=== PATIENT | male | born 1955 | race Caucasian/White ===

== ENCOUNTER 2023-02-16 10:00 | Outpatient (OUT) | payer MEDICARE, OTHER, SELFPAY ==
[2023-02-16 10:30] LABS: Basophils Absolute Auto 0.1 10^3/uL (0.0-0.1); Basophils Percent Auto 0.9 % (0.2-2.0); Eosinophils Absolute Auto 0.1 10^3/uL (0.0-0.7); Eosinophils Percent Auto 1.4 % (0.9-7.0); Hematocrit 42.6 % (42.0-54.0); Hemoglobin 13.9 g/dL (14.0-18.0); Immature Granulocytes Abs Auto 0.01 10^3/uL (0.00-0.03); Immature Granulocytes Pct Auto 0.2 % (0.0-0.5); Lymphocytes Absolute Auto 1.6 10^3/uL (1.2-3.8); Lymphocytes Percent Auto 24.9 % (20.5-60.0); Mean Corpuscular HGB Conc 32.6 g/dL (29.9-35.2); Mean Platelet Volume 9.3 fL (9.5-13.5); Monocytes Absolute Auto 0.6 10^3/uL (0.3-0.8); Monocytes Percent Auto 9.4 % (1.7-12.0); Neutrophils Absolute Auto 4.1 10^3/uL (1.4-6.5); Neutrophils Percent Auto 63.2 % (43.0-75.0); Platelet Count 177 10^3/uL (150-450); Red Blood Count 4.63 10^6/uL (4.70-6.10); Red Cell Distribution Width 12.6 % (11.0-15.0); White Blood Count 6.5 10^3/uL (4.0-11.0)
[2023-02-16 10:57] LABS: Estimated Average Glucose 134 mg/dL; Glycohemoglobin A1C 6.3 % (4.5-6.2)
[2023-02-16 11:02] LABS: Alanine Aminotransferase 43 U/L (16-63); Albumin Level 3.8 g/dL (3.4-5.0); Alkaline Phosphatase 64 U/L (46-116); Anion Gap 9.2; Aspartate Amino Transferase 31 U/L (15-37); BUN Creatinine Ratio 19.5; Bilirubin Direct 0.1 mg/dL (0.0-0.2); Bilirubin Total 0.7 mg/dL (0.2-1.0); Calcium 9.5 mg/dL (8.5-10.1); Carbon Dioxide 31.4 mmol/L (21.0-32.0); Chloride 104 mmol/L (98-107); Chol HDL Ratio 3.5; Cholesterol 193 mg/dL (<=200); Estimated GFR (African America >60 (>=60); Estimated GFR (Non-African Ame >60 (>=60); Globulin 3.9 g/dL; Glucose 111 mg/dL (74-106); HDL Cholesterol 55 mg/dL (40-60); Potassium 3.6 mmol/L (3.5-5.1); Sodium 141 mmol/L (136-145); Total Protein 7.7 g/dL (6.4-8.2); Triglycerides 294 mg/dL (<=150); VLDL CHOLESTEROL 58.8 mg/dL
[2023-02-16 11:13] LABS: Prostate Specific Antigen Scrn 0.77 ng/mL (<=4.00)
== END 2023-02-16 10:01 | disposition home or self-care (01) ==
PROVIDERS: PCP Family Medicine; Visit Provider Family Medicine
DX: Z79.899 Other long term (current) drug therapy (principal); E55.9 Vitamin D deficiency, unspecified; R73.03 Prediabetes; E78.5 Hyperlipidemia, unspecified; Z12.5 Encounter for screening for malignant neoplasm of prostate
CPT/HCPCS: 36415; 80048; 80061; 80076; 82306; 83036; 85025; G0103

== ENCOUNTER 2025-03-29 12:09 | Outpatient (OUT) | payer MEDICARE, OTHER, SELFPAY ==
--- OUTSIDE RECORDS SUMMARY | 2025-03-29 12:15 | XMS_ITS | Clinical Summary ---
Author Organization [employer] [facility] tem Address [id number] [place] [address] Care Team Providers Care Inspection Clerk Name Role Phone Unavailable Primary Care Provider Unavailabl e Social History Tobacco UseTypesPacks/DayYears UsedDateSmoking Tobacco: Never AssessedChildcare AnswerDate QplbvbwgZjgaidhgvEufzjmx96/12/2019EmploymentAnswerDate Recorded GstzxbkwogLzsknei19/12/2019Sex and Gender InformationValueDate RecordedSex Assigned at BirthNot on fileLegal MvjZuow1911/04/2014 11:35 AM EDTGender Identity Not on fileSexual OrientationNot on file Plan of Treatment Not on file Medical Devices Not on file
--- OUTSIDE RECORDS SUMMARY | 2025-03-29 12:15 | XMS_ITS | Clinical Summary ---
Author Organization [facility] Address [address] [place] [address] Care Team Providers Care Hod Carrier Name Role Phone Vimal Berg MD Primary Care Provider [phone] Vimal Berg MD Unavailable Allergies No known active allergies Medications MedicationSigDispense QuantityRefillsLast FilledStart DateEnd DateStatus simvastatin (Zocor) 80 MG tablet Indications:DyslipidemiaTake 1 tablet (80 mg) by mouth at bedtime 90 tablet 5Active cholecalciferol (Vitamin D-3) 50 MCG (1999) capsule Indications:Vitamin D deficiencyTake 1 capsule (50 mcg) by mouth Daily 90 capsule 5Active allopurinol (Zyloprim) 300 MG tablet Indications:Gouty arthritisTake 1 tablet (300 mg) by mouth Daily 30 tablet 505Active Active Problems ProblemNoted DateDiagnosed DateH/O total jlhteglqb26/18/2024Exercise-induced nbanga5603/18/20249708Cmoprvkipeo35/18/2024Medicare annual wellness visit, subsequent 03/18/2024 Assessment & Plan (03/18/2024 11:07 AM EST): Due for labs. Discussed proper diet and regular aerobic exercise. Need aerobic exercise 5-6 days a week for 30 minutes at a time. Smaller portions and limit total calories. Prior colectomy and colonoscopy not indicated. Tetanus every 10 years. Advised not to smoke. Chronic ulcerative colitis without yocudsoniasd58/18/2024Gouty arthritis 03/18/2024 Assessment & Plan (10/14/2024 9:49 AM EDT): Recent flare and treat with prednisone. Start allopurinol. Handout with info on low purine diet. Patient should limit oatmeal. Encounter for long-term (current) use of olmkmkpxrwh80/18/2024Screening PSA (prostate specific antigen)03/18/20243539Jmxoppkzhfsf02/13/2024 Encounters DateTypeDepartmentCare GgogIcmiopzgsyu98/16/2025 9:35 AM EDTOffice Visit [facility] [address] [place] [phone] Nancy Nguyen MD Seborrheic keratosis (Primary Dx); Lentigines; Sebaceous hyperplasia of face; Melanocytic nevus of upper extremity, unspecified laterality; History of basal cell carcinoma; Open comedone; Actinic mzwhuutqy77/16/2025amboo flowsheet [facility] [address] [place] [phone] Nancy Nguyen MD 01/14/2025Travelfrom Last 3 Months Family History Medical HistoryRelationNameCommentsMelanomaNeg Hx Social History Tobacco UseTypesPacks/DayYears UsedDateSmoking Tobacco: NeverSmokeless Tobacco: NeverPHQ-2AnswerDate RecordedPatient Health Questionnaire-2 Jtfef07305/19/2023Sex and Gender InformationValueDate RecordedSex Assigned at BirthNot on fileLegal ZrpHxzu2206/13/2022 7:26 PM EDTGender IdentityNot on fileSexual OrientationNot on file Last Filed Vital Signs Vital SignReadingTime TakenCommentsBlood Jthhbhtm356/6407 9:23 AM EDT Exyri3673 9:23 AM LCWLrpimhwycbz88.7 ??C (98 ??F)10/14/2024 9:23 AM EDT Respiratory Wldb998110/14/2024 9:23 AM EDTOxygen Ftmgfrznfl45%10/14/2024 9:23 AM EDTInhaled Oxygen Concentration--Lavxyb49.1 kg (159 lb)10/14/2024 9:23 AM EDT Hgswlr003.3 cm (5' 9 )10/14/2024 9:23 AM EDTBody Mass Index23.48010/14/2024 9:23 AM EDT Plan of Treatment DateTypeDepartmentCare Team (Latest Contact Info)Htcnaimbzts43/20/2026 9:45 AM EDTOffice Visit [facility] [address] [place] [phone] Nancy Nguyen MD [address] [place] [address] Health MaintenanceDue DateLast DoneCommentsMedicare Annual Wellness (AWV) 1954Pneumococcal Vaccine: 65+ Years (2 of 2 - PCV) Influenza ViaowsgHkwcpxcrc33/30/2025, 12/24/2023, 01/23/2023, Additional history exists Procedures Procedure NamePriorityDate/TimeAssociated DiagnosisCommentsCRYOTHERAPY SKIN WOQBZYQylyucn54/16/2025 9:52 AM EDT Actinic keratosis from Last 3 Months Results * Cryotherapy, skin lesion (01/14/2025 9:52 AM EDT) Narrative Authorizing ProviderResult TypeResult StatusEmcarlos Nguyen MDDERM PROCEDURE ORDERABLESFinal Result from Last 3 Months Insurance Care Teams Team MemberRelationshipSpecialtyStart DateEnd Vimal Berg MD [address] [place] [phone] PCP - [facility]03/18/24 Vimal Berg MD [address] [place] [address] PCP - [facility]05/08/24
--- OUTSIDE RECORDS SUMMARY | 2025-03-29 12:18 | XMS_ITS | CCD ---
Author Organization [facility] Care Team Providers Care Ict Support Technicians Name Role Phone DR VIMAL DANIELSON Attending Unavailable ERUM, DR VIMAL Luo Consulting Unavailable ERUM, DR VIMAL Luo Primary Care Unavailable ERUM, DR VIMAL Luo Admitting Unavailable Mackenzie He Unavailable Vimal Danielson MD Primary Care Provider Vimal Danielson MD Primary Care Provider Vimal Danielson MD Unavailable Vimal Danielson MD Primary Care Provider Vimal Danielson MD Unavailable VIMAL DANIELSON Attending Unavailable NANCY LLANES Attending Unavailable VIMAL DANIELSON Attending Unavailable Medications Current Medications MedicationDrug Class(es)DatesSig (Normalized)Sig (Original)allopurinol 300 mg oral tablet (4 sources)Xanthine Oxidase InhibitorStart: 25-49-0351hevu 1 tablet by mouth once dailyallopurinol (Zyloprim) 300 MG tablet Indications: Gouty arthritis Take 1 tablet (300 mg) by mouth Daily 30 tablet 5 10/14/2024 Activecholecalciferol 0.05 mg oral capsule (11 sources)Vitamin DStart: 37-15-8139fhtu 1 capsule by mouth once daily cholecalciferol (Vitamin D-3) 50 MCG (1999) capsule Indications: Vitamin D deficiency Take 1 capsule (50 mcg) by mouth Daily 90 capsule 3 07/27/2024 Active Start: 89-36-5051ialz 1 capsule by mouth once dailycholecalciferol (Vitamin D-3) 50 MCG (1999) capsule Indications: Vitamin D deficiency Take 1 capsule (50 mcg) by mouth Daily 90 capsule 3 07/25/2023 ActivepredniSONE 50 mg oral tablet (2 sources)Start: 10-14-2024 End: 50-78-5943jtab 1 tablet by mouth once dailypredniSONE (Deltasone) 50 MG tablet Indications: Gouty arthritis Take 1 tablet (50 mg) by mouth Daily for 6 days 6 tablet 10/14/2024 10/20/2024 Activesimvastatin 80 mg oral tablet (12 sources)HMG-CoA Reductase InhibitorStart: 16-86-6414whkx 1 tablet by mouth at bedtimesimvastatin (Zocor) 80 MG tablet Indications: Dyslipidemia Take 1 tablet (80 mg) by mouth at bedtime 90 tablet 3 07/08/2024 ActiveStart: 76-39-4845yyfx 1 tablet by mouth at bedtimesimvastatin (Zocor) 80 MG tablet Indications: Dyslipidemia (CMS/HCC) Take 1 tablet (80 mg) by mouthat bedtime 90 tablet 3 06/12/2023 Activetake 1 tablet by mouth every twenty-four hours Simvastatin 80 MG 1 tablet in the evening Orally Once a day Activetretinoin 0.25 mg/ml topical cream (8 sources)RetinoidStart: 12-30-2023 End: 31-73-6052uqvkftffy (Retin-A) 0.025 % cream Indications: Sebaceous hyperplasia of face Apply to face, once daily at evening/night time, 30 day supply 20 g 11 12/30/2023 10/14/2024 DiscontinuedVitamin D 50 MCG (2000 UT) (1 source)take 1 capsule by mouth once dailyVitamin D 50 MCG (2000 UT) 1 capsule Orally Once a day Active Problems Active Problems Problem ClassificationProblemDateDocumented DateEpisodic/ChronicAsthma (7 sources)Exercise-induced asthma; Translations: [Exercise induced bronchospasm]Onset: 476373-35-9715HikggjdLqhekclxg of lipid metabolism (14 sources)Hyperlipidemia, unspecified; Translations: [Dyslipidemia]Onset: 473624-44-2828AvbquirFchw and other crystal arthropathies (9 sources)Gouty arthropathy; Translations: [Gout, unspecified]Onset: 03-18-2024 67-95-6975NmjjswzRrxmrwlblmdge and screening for infectious disease (1 source)Contact with and (suspected) exposure to other viral communicable diseasesEpisodicNutritional deficiencies (1 source)Vitamin D deficiency, unspecified; Translations: [VITAMIN D DEFICIENCY UNSPECIFIED]Onset: 10-55-3155LhmgbqmSlrzs aftercare (4 sources)Other manager intermediate (current) drug therapy; Translations: [OTH DETENTION CURRENT DRUG THERAPY]Onset: 00-39-3941ErzvlturAwids and unspecified benign neoplasm (3 sources)Melanocytic nevus of upper limb; Translations: [Melanocytic nevi of unspecified upper limb, including shoulder]67-61-8424IjhlxjltKrvfa non- epithelial cancer of skin (3 sources)History of malignant basal cell neoplasm of skin; Translations: [Personal history of other malignant neoplasm of skin]40-16-4334CfakhppaEfuls skin disorders (3 sources)Lentiginosis; Translations: [Other melanin hyperpigmentation] 39-18-5635CxqtwysjJxkgl skin disorders (3 sources)Seborrheic keratosis; Translations: [Other seborrheic keratosis] 21-99-6770JfpzeepdZbrle skin disorders (3 sources)Sebaceous hyperplasia; Translations: [Other specified follicular disorders]27-89-4806DzlwzxufAyqws skin disorders (3 sources)Actinic keratosis; Translations: [Actinic keratosis]12-30-2023 EpisodicOther skin disorders (2 sources)Inflamed seborrheic keratosis; Translations: [Inflamed seborrheic keratosis]19-14-7326CdvlmkrhAzygp skin disorders (1 source)Open comedone; Translations: [Acne vulgaris]67-85-3140OtboewuhHfnpv upper respiratory infections (1 source)Acute pharyngitis, unspecifiedEpisodicRegional enteritis and ulcerative colitis (9 sources)Chronic ulcerative colitis; Translations: [Ulcerative colitis, unspecified, without complications]Onset: hronic Past or Other Problems Problem ClassificationProblemDateDocumented DateEpisodic/ChronicDiabetes mellitus without complication (10 sources)Prediabetes; Translations: [Prediabetes]Onset: EpisodicMood disorders (7 sources)Mood disordersOnset: 55-04-161625969107-71-5413Gfpho aftercare (9 sources)Long-term current use of drug therapy; Translations: [Other manager intermediate (current) drug therapy]Onset: 638180-49-6547GqxzszhfZgcul screening for suspected conditions (not mental disorders or infectious disease) (10 sources)Encounter for screening for malignant neoplasm of prostate; Translations: [Patient encounter status]Onset: 689709-96-2289Wisnfnhn Residual codes; unclassified (7 sources)History of total colectomy; Translations: [Acquired absence of other specified parts of digestive tract]Onset: 459396-39-5285FtiawdghFjkgk infection (1 source)COVID-19 Results Test NameValueInterpretationReference RangeFacilityCryotherapy, skin lesion Ordered By: Sanjana Chandler on 05-68-4247BMGHKindred HospitalNo Panel Informationon 16-60-3238GAGICenterPointe Hospital HealthcareCOVID + FLU Quick Testingon 12-09-2022 SARS-CoV-2 (COVID-19) RNA IAM+probe Ql (Unsp spec)PositiveNoozarks community hospital Melon #usemelon Other COVID + FLU Quick TestingNegativeNoozarks community hospital Melon #usemelon Other Quick Strepon 12-09-2022S. pyogenes Org specific cx Ql (Throat)NegativeNoozarks community hospital Melon #usemelon Other quick StrepNoCorban Direct Other VIT D 25-OH LABCORPon 67-44-6947Ihsyrke D, 25-Hydroxy 39.4 ng/aHJssaxk60.0-100.0The [facility] HospitalComment on above:Result Comment: Vitamin D deficiency has been defined by the [place] of Medicine and an Endocrine Society practice guideline as a level of serum 25-OH vitamin D less than 20 ng/mL (1,2). The Endocrine Society went on to further define vitamin D insufficiency as a level between 21 and 29 ng/mL (2). 1. IOM ([place] of Medicine). 2010. Dietary reference intakes for calcium and D. [place]: The National Academies Press. 2. Thierry JESUS, Kamari ACEVEDO, Katey CASPER, et al. Evaluation, treatment, and prevention of vitamin D deficiency: an Endocrine Society clinical practice guideline. JCEM. 2010; 96(7):1911-30.Performed By: #### VITADLC #### [facility] [address] [place] [address] Dr. Lauren Kimbrough AUTO DIFFon 02-09-2967VZPT #0.1 103/ulNormal0.0-0.1The [facility] HospitalComment on above:Performed By: #### CBC #### [facility] [address] [place] [address] Dr. Lauren SethiBasophils/100 WBC (Bld)1.3 %Normal0.2-2.0The [facility] Comment on above:Performed By: #### CBC #### [facility] [address] [place] [address] Dr. Lauren Gay #0.1 103/ulNormal0.0-0.7The [facility] HospitalComment on above: Performed By: #### CBC #### [facility] [address] [place] [address] Dr. Lauren Rameshosinophils/100 WBC (Bld)1.1 %Normal0.9-7.0The [facility] Comment on above:Performed By: #### CBC #### [facility] [address] [place] [address] Dr. Lauren Rameshrythrocyte distribution width (RBC) [Ratio]12.2 %Mzbqze27.0-15.0 The [facility] HospitalComment on above:Performed By: #### CBC #### [facility] [address] [place] [address] Dr. Lauren SethiHematocrit (Bld) [Volume fraction]45.1 %Uzuget85.0-54.0The [facility] HospitalComment on above:Performed By: #### CBC #### [facility] [address] [place] [address] Dr. Lauren SethiHemoglobin (Bld) [Mass/Vol]14.9 g/mWOmmhik80.0-18.0The [facility] HospitalComment on above:Performed By: #### CBC #### [facility] [address] [place] [address] Dr. Lauren Duncan #0.01 10e3/ulNormal0.00-0.03The [facility] HospitalComment on above:Performed By: #### CBC #### [facility] [address] [place] [address] Dr. Lauren Duncan %0.2 %Normal0.0-0.5The [facility] HospitalComment on above: Performed By: #### CBC #### [facility] [address] [place] [address] Dr. Lauren Carver #1.2 103/ulNormal1.2-3.8The [facility] HospitalComment on above:Performed By: #### CBC #### [facility] [address] [place] [address] Dr. Lauren Henryhocytes/100 WBC (Bld)21.0 %Ohalyt53.5-60.0The [facility] HospitalComment on above:Performed By: #### CBC #### [facility] [address] [place] [address] Dr. Lauren GradyUAL DIFF REQNONormalThe [facility] HospitalComment on above: Performed By: #### CBC #### [facility] [address] [place] [address] Dr. Lauren Crump (RBC) [Entitic mass]30.4 uiQdxkkc79.9-34.0The [facility] HospitalComment on above:Performed By: #### CBC #### [facility] [address] [place] [address] Dr. Lauren Crump (RBC) [Mass/Vol]33.0 g/dRWgefwx20.9-35.2The [facility] HospitalComment on above:Performed By: #### CBC #### [facility] [address] [place] [address] Dr. Lauren Crump (RBC) [Entitic vol]92.0 fSUadgrx37.0-94.0The [facility] HospitalComment on above:Performed By: #### CBC #### [facility] [address] [address] [address] Lauren Barahona #0.5 103/ulNormal0.3-0.8The [facility] HospitalComment on above:Performed By: #### CBC #### [facility] [address] [address] [address] Lauren Figueredoocytes/100 WBC (Bld)8.5 %Normal1.7-12.0The [facility] Comment on above:Performed By: #### CBC #### [facility] [address] [place] [address] Dr. Lauren Garcia #3.8 103/ulNormal1.4-6.5The [facility] HospitalComment on above:Performed By: #### CBC #### [facility] [address] [place] [address] Dr. Lauren Victorutrophils/100 WBC (Bld)67.9 %Qcpjhu88.0-75.0The [facility] HospitalComment on above:Performed By: #### CBC #### [facility] [address] [place] [address] Dr. Lauren Newsome mean volume (Bld) [Entitic vol]9.4 fLCritically low 9.5-13.5The [facility] HospitalComment on above:Performed By: #### CBC #### [facility] [address] [place] [address] Dr. Lauren SethiPLT170 103/ulPiyavs388-942Npj [facility] HospitalComment on above: Performed By: #### CBC #### [facility] [address] [place] [address] Dr. Lauren SethiRBC4.90 106/ulNormal4.70-6.10The [facility] HospitalComment on above:Performed By: #### CBC #### [facility] [address] [place] [address] Dr. Lauren SethiWBC5.6 103/ulNormal4.0-11.0[facility] on above: Performed By: #### CBC #### [facility] [address] [address] [address] Lauren SethiGLYCOHEMOGLOBIN A1Con 35-98-7354LIA RECOMMENDATIONSEE BELOWNoFirelands Regional Medical Center South CampusCominsight surgical hospital on above:Result Comment: ADA RECOMMENDED LIMIT 4.0 - 6.0 ADA THERAPEUTIC TARGET < 7.0 ACTION SUGGESTED > 7.0Performed By: #### A1C #### [facility] [address] [place] [address] Dr. Lauren SethiGlucose [Mass/Vol]131 mg/dLNoAshtabula General HospitalComment on above:Performed By: #### A1C #### [facility] [address] [place] [address] Dr. Lauren SethiHbA1c (Bld) [Mass fraction]6.2 %Normal4.5-6.2The [facility] HospitalComment on above:Performed By: #### A1C #### [facility] [address] [place] [address] Dr. Lauren SethiLIPID PROFILEon 90-15-7437OLXM-HDL RATIO NORMSEE BELOWTogus VA Medical CenterCominsight surgical hospital on above:Result Comment: 3.3 - 4.4 LOW RISK 4.4 - 7.1 AVERAGE RISK 7.1 - 11.0 MODERATE RISK >11.0 HIGH RISKPerformed By: #### BMP, ALT, AST, LIPID #### [facility] [address] [place] [address] Dr. Lauren SethiCholesterol [Mass/Vol]190 mg/dLNormal<=200The [facility] Comment on above:Performed By: #### BMP, ALT, AST, LIPID #### [facility] [address] [place] [address] Dr. Lauren SethiCholesterol in HDL [Mass/Vol]47 mg/uKIqayyk30-12JejTwin City Hospital on above:Performed By: #### BMP, ALT, AST, LIPID #### [facility] [address] [place] [address] Dr. Lauren Hennessyesterol in LDL [Mass/Vol]87.2 mg/dLTogus VA Medical CenterComment on above:Performed By: #### BMP, ALT, AST, LIPID #### [facility] [address] [address] [address] Lauren Borges.total/Cholesterol in HDL [Mass ratio]4.0 {ratio} NormalBlanchard Valley Health System Bluffton HospitalCominsight surgical hospital on above:Performed By: #### BMP, ALT, AST, LIPID #### [facility] [address] [address] [address] Lauren Martin NORMAL> or = 60 mg/dl - LOW CARDIOVASCULAR RISK <40 mg/dl - HIGH CARDIOVASCULAR RISKTogus VA Medical CenterComment on above:Performed By: #### BMP, ALT, AST, LIPID #### [facility] [address] [place] [address] Dr. Lauern Lew CALC NORMALSEE BELOWTogus VA Medical CenterComment on above:Result Comment: <100 mg/dl OPTIMAL 100 - 129 mg/dl NEAR OR ABOVE OPTIMAL 130 - 159 mg/dl BORDERLINE HIGH 160 - 189 mg/dl HIGH >190 mg/dl VERY HIGH Performed By: #### BMP, ALT, AST, LIPID #### [facility] [address] [place] [address] Dr. Lauren SethiTriglyceride [Mass/Vol]279 mg/dLCritically high<=150Bl[facility] HospitalCominsight surgical hospital on above:Performed By: #### BMP, ALT, AST, LIPID #### [facility] [address] [place] [address] Dr. Lauren SethiVLDL CALC55.8 mg/dLNoAshtabula General HospitalComment on above: Performed By: #### BMP, ALT, AST, LIPID #### [facility] [address] [place] [address] Dr. Lauren SethiPROF CHEM 8 (BAS METB)on 79-81-9549Vnbpz gap [Moles/Vol]14.1 mmol/LNormalBlanchard Valley Health System Bluffton HospitalCominsight surgical hospital on above:Performed By: #### BMP, ALT, AST, LIPID #### [facility] [address] [address] [address] Lauren SethiCalcium [Mass/Vol]9.7 mg/dLNormal8.5-10.1The [facility] Comment on above:Performed By: #### BMP, ALT, AST, LIPID #### [facility] [address] [address] [address] Lauren SethiChloride [Moles/Vol]104 mmol/UXobeic19-961Czu [facility] Comment on above:Performed By: #### BMP, ALT, AST, LIPID #### [facility] [address] [address] [address] Lauren SethiCO2 [Moles/Vol]26.2 mmol/PWoizxs64.0-32.0The [facility] Comment on above:Performed By: #### BMP, ALT, AST, LIPID #### [facility] [address] [address] [address] Lauren SethiCreatinine [Mass/Vol]1.25 mg/dLNormal0.70-1.30The [facility] HospitalComment on above:Performed By: #### BMP, ALT, AST, LIPID #### [facility] [address] [address] [address] Lauren RameshGFR-AF CITIZEN OF [place]>60Normal>=60The [facility] HospitalComment on above:Performed By: #### BMP, ALT, AST, LIPID #### [facility] [address] [address] [address] Lauren RameshGFR-NON AF KIONDAYK90 mL/min/1.67c8Wrsyxiaxcl low>=60The [facility] HospitalComment on above:Performed By: #### BMP, ALT, AST, LIPID #### [facility] [address] [address] [address] Lauren SethiGlucose [Mass/Vol]113 mg/dLCritically bfxz93-227Tvr [facility] HospitalComment on above:Performed By: #### BMP, ALT, AST, LIPID #### [facility] [address] [address] [address] Lauren SethiPotassium [Moles/Vol]4.3 mmol/LNormal3.5-5.1The [facility] Comment on above:Performed By: #### BMP, ALT, AST, LIPID #### [facility] [address] [place] [address] Dr. Lauren Arizaum [Moles/Vol]140 mmol/MMcpvzc169-302TytBlanchard Valley Health System Bluff[facility] Hospital Comment on above:Performed By: #### BMP, ALT, AST, LIPID #### [facility] [address] [place] [address] Dr. Lauren Woods nitrogen [Mass/Vol]23.0 mg/dLCritically high7.0-18.0The [facility] HospitalComment on above:Performed By: #### BMP, ALT, AST, LIPID #### [facility] [address] [place] [address] Dr. Lauren Woods nitrogen/Creatinine [Mass ratio]18.4 mg/mgNormalThe [facility] HospitalComment on above:Performed By: #### BMP, ALT, AST, LIPID #### [facility] [address] [place] [address] Dr. Lauren Roa 05-45-5772RCV [Catalytic activity/Vol]32 U/QTfyxbz47-86Jkv [facility] HospitalComment on above:Performed By: #### BMP, ALT, AST, LIPID #### [facility] [address] [place] [address] Dr. Lauren Bagley 01-92-7054UXZ [Catalytic activity/Vol]59 U/CJnabhd56-82Nik [facility] HospitalComment on above:Performed By: #### BMP, ALT, AST, LIPID #### [facility] [address] [place] [address] Dr. Lauren Sethi Vital Signs Date TimeVital SignValuePerforming MhpaxofmpDalbdkay70-43-2495 09:23-0400Body vvrxos950.3 cmVimal Danielson MD Work Phone: NOChristian HospitalOpguvftpmp94-45-1188 09:23-0400Body mass index (BMI) [Ratio]23.48 kg/m2Vimal Danielson MD Work Phone: [facility] HospitalJsvkeeqamk84-61-3971 09:23-0400Body temperature 98.01 [degF]Vimal Danielson MD Work Phone: [facility] HospitalLxriidxojn14-20-0136 09:23-0400Body .12 kgVimal Danielson MD Work Phone: [facility] HospitalGgjmjaormz78-80-7032 09:23-0400Diastolic blood ceaascfv33 mm[Hg]Vimal Danielson MD Work Phone: [facility] HospitalEcucnpdphd91-58-0719 09:23-0400Heart rate61 /min Vimal Danielson MD Work Phone: [facility] HospitalBquanfhecv47-84-2567 09:23-0400Respiratory rate18 /minVimal Danielson MD Work Phone: [facility] HospitalEitbzibxnf97-82-2333 09:23-3857SgR9% (BldA) [Mass fraction]97 %Vimal Danielson MD Work Phone: [facility] HospitalLpbfyanohh20-61-4731 09:23-0400Systolic blood hdfkizmf428 mm[Hg]Vimal Danielson MD Work Phone: [facility] HospitalCsjikrrajr09-11-7550 10:41-0500Body rztbbi352.3 cmVimal Danielson MD Work Phone: [facility] HospitalItwuiusifr10-58-5324 10:41-0500Body mass index (BMI) [Ratio]23.18 kg/m2Vimal Danielson MD Work Phone: [facility] HospitalXmazugtlix77-09-3866 10:41-0500Body temperature 97.5 [degF]Vimal Danielson MD Work Phone: [facility] HospitalGtulfnvwql16-19-5477 10:41-0500Body .22 kgVimal Danielson MD Work Phone: [facility] HospitalKswtuxcpte70-61-1300 10:41-0500Diastolic blood qxiwwtnc71 mm[Hg]Vimal Danielson MD Work Phone: noChristian HospitalGxeostecvc04-15-0403 10:41-0500Heart rate73 /min Vimal Danielson MD Work Phone: noChristian HospitalHgstlyxcun60-12-5875 10:41-0500Respiratory rate18 /minVimal Danielson MD Work Phone: noChristian HospitalTfrobhshxv03-21-2366 10:41-8922CyT3% (BldA) [Mass fraction]98 %Vimal Danielson MD Work Phone: noChristian HospitalBvyioulrfg96-19-7706 10:41-0500Systolic blood ykyotugq057 mm[Hg]Vimal Danielson MD Work Phone: [facility] HospitalUifjervhpl30-91-0510 10:35-0400Body wenprr760.26 cmArobel He Other [facility] Melon #usemelon Other 09-10-2023 10:35-0400Body mass index (BMI) [Ratio] 23.09 kg/j6KxebnMackenzie He Other [facility] Melon #usemelon Other 09-10-2023 10:35-0400Body nbdjwjykwgw41.6 [degF]Mackenzie He Other [facility] Melon #usemelon Other 09-10-2023 10:35-0400Body ebyzcw97.94 kgMackenzie He Other [facility] Melon #usemelon Other 09-10-2023 10:35-0400Respiratory rate18 /minMackenzie He Other [facility] Melon #usemelon Other 09-10-2023 10:35-9729JiK3% (BldA) [Mass fraction]97 % Mackenzie He Other [facility] Melon #usemelon Other Encounters Encounter DateEncounter TypeCare ProviderFacilityStart: 01-14-2025 End: 24-92-2312Vlrvaisven Llanes MD Work Phone: noWire[facility] CenterLogan DermatologyStart: 01-14-2025 End: 35-34-2271Xpiyweadalid Llanes MD Work Phone: noWiregrass Medical CenterLogan DermatologyStart: 01-14-2025 End: 30-61-7680Zokvzs outpatient visit 15 minutesEmcarlos Llanes MD Work Phone: noQueen [facility] DermatologyComment on above:Seborrheic keratosis (Primary Dx); Lentigines; Sebaceous hyperplasia of face; Melanocytic nevus of upper extremity, unspecified laterality; History of basal cell carcinoma; Open comedone; Actinic keratosisStart: 01-14-2025 End: 15-49-4791jysqaehcwqLDYVH A PETITTINot AvailableStart: 10-14-2024 End: 54-02-9541Kygdei Madison Danielson MD Work Phone: NONN CW FMStart: 10-14-2024 End: 33-98-3305Twlcrq Madison Danielson MD Work Phone: NOCK CW FMStart: 10-14-2024 End: 95-38-8335Bweyvf outpatient visit 15 minutesVimal Danielson MD Work Phone: noms [facility] FMComment on above:Gouty arthritis (Primary Dx); Ulcerative colitis, unspecified, without complications (HCC)Start: 10-14-2024 End: 51-95-4540dwaiieegfnARYG NADERERNot AvailableStart: 03-18-2024 End: 78-75-2933Esliqu Madison Danielson MD Work Phone: NOCG CW FMStart: 03-18-2024 End: 63-98-0149Iukbpasven Danielson MD Work Phone: noms [facility] FMStart: 03-18-2024 End: 62-35-0916Ttuidma encounter procedureVimal Danielson MD Work Phone: [facility] Work Phone: Start: 03-18-2024 End: 70-24-7595Yckoyp follow up visit related to original pxVimal Danielson MD Work Phone: noms CW FMComment on above:Medicare annual wellness visit, subsequent (Primary Dx); Prediabetes; Screening PSA (prostate specific antigen); Encounter for long-term (current) use of medications; Dyslipidemia ([facility]/HCC)Start: 03-18-2024 End: 19-12-8238ngmkbrkdlrJIUB NADERERNot AvailableStart: 12-30-2023 End: 15-94-9499Luvvtm flowsheetEmcarlos Llanes MD Work Phone: noms [facility] DERMStart: 12-30-2023 End: 35-55-5207Czkshz flowsheetNancy Llanes MD Work Phone: noms [facility] DERMStart: 12-30-2023 End: 69-73-8171Wgoqws outpatient visit 15 minutesEmcarlos Llanes MD Work Phone: noms [facility] DERMComment on above:Seborrheic keratosis (Primary Dx); Melanocytic nevus of upper extremity, unspecified laterality; Lentigines; Sebaceous hyperplasia of face; History of basal cell carcinoma; Actinic keratosis; Seborrheic keratosis, inflamedStart: 12-09-2022 End: 54-59-3948berblowwwvIdbbo Keller Other [facility] Melon #usemelon Other Start: 24-07-4414Uwgstq outpatient visit 25 minutes Mackenzie [facility] ClydeStart: 11-27-2021 End: 47-61-8783rkqmflrokrVV MARC A NADERERFacility:H1 Procedures DateProcedureProcedure DetailPerforming ClinicianStart: 83-23-8996YAZRYYPYXQS SKIN LESIONEmcarlos Llanes MD Work Phone: Start: 12-30-2023 End: 44-12-6505QUHYNJYBPSF SKIN LESIONNancy Llanes MD Work Phone: Start: 69-75-2453RYG Melida Leal on above:Performed By: #### [facility] #### [facility] [address] [address] [address] Lauren Sethi Plan of Treatment DateCare ActivityDetailAuthorStart: 01-18-2026 End: 99-58-0839Gqxkqtp encounter atszxfgav01/20/2026 9:45 AM EDT Office Visit [facility] [address] [place] [address] Nancy Llanes MD [address] [place] [address] [facility]: 03-29-2025 End: 76-29-7320Tclcprs encounter procedureNOMS CWM FMStart: 12-18-2025Medicare Annual Wellness (AWV)Medicare Annual Wellness (AWV)[facility] HealthcareStart: 01-14-2025 End: 28-66-6683Vguuqgv encounter procedureNOMS SWS DERMComment on above:Arrived Start: 12-31-2024 End: 95-30-9971Qyhgmxk encounter gskzeubfm30/02/2025 10:00 AM EDT Office Visit [facility] [address] [place] [address] Nancy Llanes MD [address] [place] [address] [facility] DERMStart: 42-11-3048Wyupaheop vaccination Influenza Vaccine (#1)[facility] HealthcareStart: 10-14-2024 End: 71-06-2543Jzjpdit encounter /16/2025 9:00 AM EDT Office Visit [facility] [address] [place] [address] Vimal Danielson MD [address] [place] [address] [facility] FMComment on above:ArrivedStart: 03-18-2024 End: 97-58-5365Ggaku metabolic 1998 panel - Serum or PlasmaBasic metabolic panel Lab Routine Encounter for long-term (current) use of medications Expected: (Approximate), Expires: 03/18/2025NONC HealthcareComment on above: Expected: 03/18/2024 (Approximate), Expires: 03/18/2025Start: 03-18-2024 End: 18-52-0819FHB W Auto Differential panel - BloodCBC and differential Lab Routine Encounter for long-term (current) use of medications Expected: 03/01 (Approximate), Expires: 03/18/2025NONC HealthcareComment on above: Expected: 03/18/2024 (Approximate), Expires: 03/18/2025Start: 03-18-2024 End: 60-40-5151Elmdzusorm A1c/Hemoglobin.total in BloodHemoglobin A1c Lab Routine Prediabetes Expected: 03/18/2024 (Approximate), Expires: 03/18/2025[facility] Work Phone: Comment on above:Expected: 03/18/2024 (Approximate), Expires: 03/18/2025Start: 03-18-2024 End: 70-64-8025Aubutwt function 2000 panel - Serum or PlasmaHepatic function panel Lab Routine Encounter for long-term (current) use of medications Expected: 03/18/2024 (Approximate), Expires: 03/18/2025NONC HealthcareComment on above: Expected: 03/18/2024 (Approximate), Expires: 03/18/2025Start: 03-18-2024 End: 63-73-4790Poywz 1996 panel - Serum or PlasmaLipid panel Lab Routine Dyslipidemia (CMS/HCC) Expected: 03/18/2024 (Approximate), Expires: 03/18/2025 [facility] HealthcareComment on above:Expected: 03/18/2024 (Approximate), Expires: 03/18/2025Start: 03-18-2024 End: 88-98-7628Wuoemwvd specific Ag [Mass/volume] in Serum or PlasmaPSA Lab Routine Screening PSA (prostate specific antigen) Expected: 03/18/2024 (Approximate), Expires: 03/18/2025NONC HealthcareComment on above:Expected: 03/18/2024 (Approximate), Expires: 03/18/2025Start: 03-18-2024 End: 78-81-6086Krufmmo encounter gxpqrluvz16/18/2024 10:45 AM EST Office Visit [facility] [address] [address] Vimal Danielson MD [address] [place] [address] [facility]NOST[facility] FMComment on above:ArrivedStart: 11-17-2024Medicare Annual Wellness (AWV)Medicare Annual Wellness (AWV)[facility] HealthcareStart: 12-30-2023 End: 49-46-5011Vbuaide encounter enhvkxpin78/30/2024 10:00 AM EDT Office Visit [facility] [address] [place] [address] Nancy Llanes MD [address] [place] [address] [facility] DERMComment on above:ArrivedStart: 58-61-4052Qigczhghs vaccinationInfluenza Vaccine (#1)[facility] HealthcareStart: 60-38-4424Mmnatxyouuqe Vaccine: 65+ Years (2 of 2 - PCV)Pneumococcal Vaccine: 65+ Years (2 of 2 - PCV)[facility] HealthcareStart: 01-19-1955Medicare Annual Wellness (AWV)Medicare Annual Wellness (AWV)[facility] HealthcareStart: 23-48-7133Jzxphutbw for malignant neoplasm of colonN[facility]S Healthcare Immunizations Immunization DateImmunizationNotesCare IobmzqpjDfiodfiz95-46-8190tdigeyawz virus vaccine, unspecified formulationRunnells Specialized Hospitalmario Danielson MD Work Phone: [facility] HospitalAwqmkvjasc02-17-4869sasogwida virus vaccine, unspecified formulationNancy Llanes MD Work Phone: [facility] Payers DatePayer CategoryPayerPolicy [id number] Health InsuranceMEDICAL MUTUAL [id number] KAAAWA [employer]ICAL [employer] [id number] 2021-Present [address] [place] [id number] 2020Medicare [id number] [id number] [id number] [id number] Social History DateTypeDetailFacilityUnknown if ever smokedNoozarks community hospital Melon #usemelon Other Start: 03-18-2024 End: 29-50-3652Omr Assigned At BirthS[facility] HealthcareStart: 68-50-1185Dxzsdsu smoking status NHISNever smoked tobaccoSALT LAKE REGIONAL MEDICAL CENTER Healthcare Work Phone: Start: 46-10-4414Tyhgudh use and exposureSmokeless tobacco non-userSALT LAKE REGIONAL MEDICAL CENTER HealthcareStart: 03-18-2024 End: 42-68-0609Erzaxlg of Social functionNONC HealthcareStart: 23-77-7691Kvu assigned at birthNot on fileSALT LAKE REGIONAL MEDICAL CENTER HealthcareStart: 40-16-4877OfcEksiVFEM Healthcare History of Present illness Narrative 01-14-2025 Note Date & VvhlWfckNivschmn34-56-7278 History of Present illness Narrative* Nancy Llanes MD - 01/14/2025 9:35 AM EDT Skin Check Location: Patient requests a skin examination from the waist up Dermatologic history: history of Actinic Keratosis, history of Basal Cell Carcinoma Last visit: 1 year ago Established patient Lesions: Location: right ear, scalp, right neck Duration: years Associated symptoms: rough, crusty spots Treatments: none All pertinent medical history, medications, and allergies were reviewed. General Exam: alert , oriented to person, place, and time , normal affect, well appearing A complete skin exam was offered, pt declined. Areas not examined despite medical recommendation: From the waist down Scalp, Examined Head, Face Examined Neck Examined Chest Examined Back Examined Abdomen Examined Right arm Examined Left arm Examined Hands Examined Digits,nails: Examined Skin Exam 1. LENTIGINES Head - Anterior (Face) Scattered fajardo macules in sun-exposed areas. The patient was informed that lentigines are benign pigmented lesions that occur on sun-exposed andsun-damaged skin. No treatment is necessary. Recommended regular use of broad spectrum sunscreen SPF 30 or higher 2. SEBORRHEIC KERATOSIS Torso - Posterior (Back) Stuck on verrucous, fajardo-brown papules and plaques. Patient was counseled regarding these benign growths. Removal is normally not necessary, but they may be removed if they are symptomatic or for cosmetic reasons. 3. SEBACEOUS HYPERPLASIA OF FACE Mid Forehead Small yellow papules with a central dell. Reassure, benign. Discussed these can be removed for a cosmetic fee with the hyfrecator if desired.Start tretinoin 0.025% apply face every day in HS to help shrink pores and help control oil on the skin. Explained to patient insurance may concerned the use of this medication as cosmetic. [facility]. This medication can put patient at a higher risk for sunburn , Recommended broad spectrum sunscreen with SPF 30 or higher to be applied every 2 hours. Notify office if any worsening despite treatment. 4. MELANOCYTIC NEVUS OF UPPER EXTREMITY, UNSPECIFIED LATERALITY Generalized Scattered benign appearing, regular brown to light brown melanocytic papules and macules with similar morphology Counseled regarding these benign growths. Rarely, a nevus can develop into malignant melanoma, so any changing nevi should be promptly re-evaluated. 5. HISTORY OF BASAL CELL CARCINOMA Right Buccal Cheek No evidence of recurrence at BCC scar. The patient was counseled that scars from excisional sites of nonmelanoma skin cancers should be monitored closely for recurrence. The patient was instructed to contact the office for any new, changing, or symptomatic moles. The patient was also instructed to contact the office for any new lesions that develop within or around the previous surgery scar. 6. OPEN COMEDONE Right Anterior Neck Open comedone with central oxidized keratin plug. Comedone extraction Indication: Milia Location: right neck Preparation/Procedure: Area cleansed with alcohol, Milia extracted with Infineta Systemserg comedone extractor. Post Procedure: Area cleansed. 7. ACTINIC KERATOSIS (8) Mid Parietal Scalp (3), Right Cymba, Right Inferior Laine of Antihelix, Right Mid [place], Right Shinto, Right Zygomatic Area Erythematous scaly papules Patient was counseled regarding these sun-induced growths that can develop into squamous cell carcinoma if left untreated. Discussed treatment with cryotherapy. It was emphasized that any treated lesions that fail to resolve should be re- evaluated. Cryotherapy performed today; see procedure note Diagnosis: Actinic keratosis Indication: Precancerous Location: see skin exam Consent: Verbal consent was obtained and risks were discussed, including, but not limited to risks of scarring, darker or loss prevention research engineer pigmentary changes, recurrence, incomplete removal and infection. Method: Liquid nitrogen was used to treat the lesion(s) with two 5-10 second freeze-thaw cycles. Eyes were shielded using cotton pad during procedure Number of lesions treated: 8 Post-procedure instructions: Instructions were given orally and in writing. The office will be contacted if the lesion fails to resolve despite treatment, or if a side effect develops such as abnormal crusting, scabbing, redness or tenderness - Cryotherapy, skin lesion - Mid Parietal Scalp (3), Right Cymba, Right Inferior Laine of Antihelix,Right Mid [place], Right Shinto, Right Zygomatic Area Next Visit: 1 year skin exam [facility] History of Present illness Narrative 10-14-2024 Note Date & EsscKudvOuixnmta77-97-9134 History of Present illness Narrative* Vimal Danielson MD - 10/14/2024 9:49 AM EDTAssociated Problem(s): Gouty arthritis Recent flare and treat with prednisone. Start allopurinol. Handout with info on low purine diet. Patient should limit oatmeal. * Vimal Danielson MD - 10/14/2024 9:00 AM EDT Images from the original note were not included. Subjective Patient ID: Min Ash is a 69 y.o. male who presents for Follow-up (gout). C/o gout flare for several weeks. Severe pain and swelling in right index finger in DIP joint. Joint red and hot to touch. Severe pain to bend finger or if bump. Tried ice and motrin but not helping.Recently developed pain and swelling in right great toe. History of gout in past and prior flare [id number]. On allopurinol for about a year and then stopped. Looked up low purine diet and trying to figure out what foods are causing problems. Reports having oatmeal every am for breakfast. Review of Systems Constitutional: Negative for fatigue. Respiratory: Negative for cough, shortness of breath and wheezing. Cardiovascular: Negative for chest pain and palpitations. Gastrointestinal: Negative for abdominal pain, diarrhea, nausea and vomiting. Genitourinary: Negative for dysuria. Objective Physical Exam Constitutional: General: He is not in acute distress. Appearance: Normal appearance. HENT: Head: Normocephalic. Right Ear: Tympanic membrane and ear canal normal. Left Ear: Tympanic membrane and ear canal normal. Eyes: Extraocular Movements: Extraocular movements intact. Pupils: Pupils are equal, round, and reactive to light. Cardiovascular: Rate and Rhythm: Normal rate and regular rhythm. Heart sounds: No murmur heard. No friction rub. No gallop. Pulmonary: Breath sounds: Normal breath sounds. No wheezing, rhonchi or rales. Abdominal: General: Bowel sounds are normal. There is no distension. Palpations: Abdomen is soft. Tenderness: There is no abdominal tenderness. There is no guarding or rebound. Musculoskeletal: Left lower leg: No edema. Neurological: Mental Status: He is alert. Assessment/Plan Problem List Items Addressed This Visit Gouty arthritis - Primary Recent flare and treat with prednisone. Start allopurinol. Handout with info on low purine diet. Patient should limit oatmeal. Relevant Medications predniSONE (Deltasone) 50 MG tablet allopurinol (Zyloprim) 300 MG tablet documented in this encounterNOMS Healthcare History of Present illness Narrative 03-18-2024 Note Date & WsgkXmlvRrjawymi27-36-6732 History of Present illness Narrative* Vimal Danielson MD - 03/18/2024 11:07 AM ESTAssociated Problem(s): Medicare annual wellness visit, subsequent Due for labs. Discussed proper diet and regular aerobic exercise. Need aerobic exercise 5-6 days a week for 30 minutes at a time. Smaller portions and limit total calories. Prior colectomy and colonoscopy not indicated. Tetanus every 10 years. Advised not to smoke. * Vimal Danielson MD - 03/18/2024 10:45 AM EST Images from the original note were not included. Subjective Patient ID: Min Ash is a 68 y.o. male who presents for Medicare Annual Wellness Visit Subsequent (wellness). Presents for medicare annual wellness visit. Patient feels well today. Weight unchanged over the past year. Patient tries to stay active and walk a several days a week. Goes to the [facility] to walk. Tries to watch diet and eat healthy. Increased fruits and vegetables. Smaller portions and limits snacking. Tries to limit total daily calories. Due for labs. Review of Systems Constitutional: Negative for fatigue. Respiratory: Negative for cough, shortness of breath and wheezing. Cardiovascular: Negative for chest pain and palpitations. Gastrointestinal: Negative for abdominal pain, diarrhea, nausea and vomiting. Genitourinary: Negative for dysuria. Objective Physical Exam Constitutional: General: He is not in acute distress. Appearance: Normal appearance. HENT: Head: Normocephalic. Right Ear: Tympanic membrane and ear canal normal. Left Ear: Tympanic membrane and ear canal normal. Eyes: Extraocular Movements: Extraocular movements intact. Pupils: Pupils are equal, round, and reactive to light. Cardiovascular: Rate and Rhythm: Normal rate and regular rhythm. Heart sounds: No murmur heard. No friction rub. No gallop. Pulmonary: Breath sounds: Normal breath sounds. No wheezing, rhonchi or rales. Abdominal: General: Bowel sounds are normal. There is no distension. Palpations: Abdomen is soft. Tenderness: There is no abdominal tenderness. There is no guarding or rebound. Musculoskeletal: General: Normal range of motion. Left lower leg: No edema. Neurological: General: No focal deficit present. Mental Status: He is alert. Cranial Nerves: No cranial nerve deficit. Deep Tendon Reflexes: Reflexes normal. Assessment/Plan Problem List Items Addressed This Visit Dyslipidemia (CMS/HCC) Relevant Orders Lipid panel Prediabetes Relevant Orders Hemoglobin A1c Medicare annual wellness visit, subsequent - Primary Due for labs. Discussed proper diet and regular aerobic exercise. Need aerobic exercise 5-6 days a week for 30 minutes at a time. Smaller portions and limit total calories. Prior colectomy and colonoscopy not indicated. Tetanus every 10 years. Advised not to smoke. Encounter for long-term (current) use of medications Relevant Orders Basic metabolic panel CBC and differential Hepatic function panel Screening PSA (prostate specific antigen) Relevant Orders PSA documented in this encounterNOMS Healthcare History of Present illness Narrative 12-30-2023 Note Date & TmetRvxyLrsuvjvr70-35-3397 History of Present illness Narrative* Nancy Llanes MD - 12/30/2023 10:00 AM EDT Skin Check Location: Patient requests a skin examination from the waist up Dermatologic history: history of Actinic Keratosis, history of Basal Cell Carcinoma Last visit: 1 year ago Established patient Lesions: Location: face Duration: years Quality: itchy Modifying factors: none Associated symptoms: red bumps Treatments: none All pertinent medical history, medications, and allergies were reviewed. General Exam: alert , oriented to person, place, and time , normal affect, well appearing A complete skin exam was offered, pt declined. Areas not examined despite medical recommendation: From the waist down Scalp, Examined Head, Face Examined Neck Examined Chest Examined Back Examined Abdomen Examined Right arm Examined Left arm Examined Hands Examined Digits,nails: Examined Lymphatics: 1. Melanocytic nevus of upper extremity, unspecified laterality Scattered benign appearing, regular brown to light brown melanocytic papules and macules with similar morphology Counseled regarding these benign growths. Rarely, a nevus can develop into malignant melanoma, so any changing nevi should be promptly re-evaluated. 2. Lentigines Head - Anterior (Face) Scattered fajardo macules in sun-exposed areas. The patient was informed that lentigines are benign pigmented lesions that occur on sun-exposed andsun-damaged skin. No treatment is necessary. Recommended regular use of broad spectrum sunscreen SPF 30 or higher 3. Seborrheic keratosis Torso - Posterior (Back) Stuck on verrucous, fajardo-brown papules and plaques. Patient was counseled regarding these benign growths. Removal is normally not necessary, but they may be removed if they are symptomatic or for cosmetic reasons. 4. Sebaceous hyperplasia of face Mid Forehead Small yellow papules with a central dell. Reassure, benign. Discussed these can be removed for a cosmetic fee with the hyfrecator if desired.Start tretinoin 0.025% apply face every day in HS to help shrink pores and help control oil on the skin. Explained to patient insurance may concerned the use of this medication as cosmetic. [facility]. This medication can put patient at a higher risk for sunburn , Recommended broad spectrum sunscreen with SPF 30 or higher to be applied every 2 hours. Notify office if any worsening despite treatment. tretinoin (Retin-A) 0.025 % cream - Mid Forehead Apply to face, once daily at evening/night time, 30 day supply 5. History of basal cell carcinoma Right Buccal Cheek No evidence of recurrence at BCC scar. The patient was counseled that scars from excisional sites of nonmelanoma skin cancers should be monitored closely for recurrence. The patient was instructed to contact the office for any new, changing, or symptomatic moles. The patient was also instructed to contact the office for any new lesions that develop within or around the previous surgery scar. 6. Actinic keratosis (5) Left Dorsal Hand, Left Zygomatic Area, Right Shinto, Right Zygomatic Area (2) Erythematous scaly papules Patient was counseled regarding these sun-induced growths that can develop into squamous cell carcinoma if left untreated. Discussed treatment with cryotherapy. It was emphasized that any treated lesions that fail to resolve should be re- evaluated. Cryotherapy performed today; see procedure note Diagnosis: Actinic keratosis Indication: Precancerous Location: see skin exam Consent: Verbal consent was obtained and risks were discussed, including, but not limited to risks of scarring, darker or loss prevention research engineer pigmentary changes, recurrence, incomplete removal and infection. Method: Liquid nitrogen was used to treat the lesion(s) with two 5-10 second freeze-thaw cycles. Number of lesions treated: 5 Post-procedure instructions: Instructions were given orally and in writing. The office will be contacted if the lesion fails to resolve despite treatment, or if a side effect develops such as abnormal crusting, scabbing, redness or tenderness Cryotherapy, skin lesion - Left Dorsal Hand, Left Zygomatic Area, Right Shinto, Right Zygomatic Area (2) 7. Seborrheic keratosis, inflamed Left Shinto [place] and brown stuck on verrucous scaly papule with surrounding erythema The patient was informed that symptomatic seborrheic keratoses are benign growths that become inflamed, itchy, tender, traumatized, caught on clothing, or bleed. Symptomatic lesions can be treated with cryotherapy or curretage. Thicker lesions treated with cryotherapy may require more than one treatment. The patient was instructed to notify the office if abnormal redness or tenderness develops atthe treatment site. Cryotherapy today, see procedure note. Diagnosis: Inflamed seborrheic keratosis Indication: Inflamed Consent: Verbal consent was obtained and risks were discussed, including, but not limited to risks of scarring, darker or loss prevention research engineer pigmentary changes, recurrence, incomplete removal and infection. Method: Liquid nitrogen was used to treat the lesion(s) with two 5-10 second freeze-thaw cycles Number of lesions treated: 1 Post-procedure instructions: Instructions were given orally and in writing. The office will be contacted if the lesion fails to resolve despite treatment, or if a side effect develops such as abnormal crusting, scabbing, redness or tenderness Cryotherapy, skin lesion - Left Shinto Next Visit: 1 year skin exam documented in this encounterNONC Healthcare Evaluation note 12-09-2022 Note Date & KeziLgchBezuzkyc97-43-3156 Evaluation note* Encounter Date Diagnosis Assessment Notes Treatment Notes Treatment Clinical Notes Nov, Sore throat (ICD-10 - J02.9) Nov,OVID-19 (ICD-10 - U07.1) COVID PCR test performed in office today. Advised patient that test was positive. Influenza A/B PCR test and rapid Strep test negative. Instructed patient to isolate per CDC guidelines for 5 days from symptom onset, mask 5 days following. May return to work/activities outside home after isolation period as long as symptoms are improving and has been afebrile for 24 hours without use of antipyretic. Advised patient that treatment of COVID is with viral supportive care, OTC cold medications as directed, Tylenol/Motrin as needed for body aches/fever. Increase fluids and rest. Encouraged use of cool mist humidifier. Follow-up with PCP to advise of positive result and further management. Immediate eval for SOB, difficulty, chest pain, fevers that do not break with antipyretic or any other concerning symptoms as reviewed on patient education handout. Patient verbalizes understanding and is agreeable to treatment plan. Patient left in stable condition Nov,Exposure to COVID-19 virus (ICD-10 - Z20.828) [employer] Other Evaluation note Note Date & TypeNoteFacilityEvaluation note* Diagnosis Medicare annual wellness visit, subsequent- Primary Prediabetes Other abnormal glucose Screening PSA (prostate specific antigen) Special screening for malignant neoplasm of prostate Encounter for long-term (current) use of medications Encounter for long-term (current) use of other medications Dyslipidemia (CMS/HCC) Other and unspecified hyperlipidemia documented in this encounter [facility] Evaluation note Note Date & TypeNoteFacilityEvaluation note* Diagnosis Seborrheic keratosis- Primary Melanocytic nevus of upper extremity, unspecified laterality Lentigines Sebaceous hyperplasia of face History of basal cell carcinoma Personal history of other malignant neoplasm of skin Actinic keratosis Seborrheic keratosis, inflamed documented in this encounter [facility] Evaluation note Note Date & TypeNoteFacilityEvaluation note* Diagnosis Medicare annual wellness visit, subsequent- Primary Prediabetes Other abnormal glucose Screening PSA (prostate specific antigen) Special screening for malignant neoplasm of prostate Encounter for long-term (current) use of medications Encounter for long-term (current) use of other medications Dyslipidemia Other and unspecified hyperlipidemia Gouty arthritis- Primary Gouty arthropathy, unspecified Ulcerative colitis, unspecified, without complications (HCC) documented in this encounter [facility] Healthcare Evaluation note Note Date & TypeNoteFacilityEvaluation note* Diagnosis Medicare annual wellness visit, subsequent- Primary Prediabetes Other abnormal glucose Screening PSA (prostate specific antigen) Special screening for malignant neoplasm of prostate Encounter for long-term (current) use of medications Encounter for long-term (current) use of other medications Dyslipidemia Other and unspecified hyperlipidemia Gouty arthritis- Primary Gouty arthropathy, unspecified Ulcerative colitis, unspecified, without complications (HCC) Seborrheic keratosis- Primary Lentigines Sebaceous hyperplasia of face Melanocytic nevus of upper extremity, unspecified laterality History of basal cell carcinoma Personal history of other malignant neoplasm of skin Open comedone Other acne Actinic keratosis documented in this encounter [facility] Healthcare History general Narrative - Reported Note Date & TypeNoteFacilityHistory general Narrative - Reported* Type Description Date Medical History Gout Medical HistoryhypercholesterolemiaSurgical Historyileostomy CloudOne Other Summary Purpose Family History No Family History Records FoundNo Family History Records Found Advance Directives No Advanced Directives Records FoundNo Advanced Directives Records Found Reason for Referral SpecialtyDiagnoses / ProceduresReferred By ContactReferred To Contact Diagnoses Sebaceous hyperplasia of face Nancy Llanes MD [address] [place] [address] Referral IDStatusReasonStart DateExpiration DateVisits RequestedVisits [id number] Additional Source Comments (unrecognized sect ion and content) No Status Records FoundNo Status Records Found INFORMATION SOURCE (unrecogn ized section and content) DATE CREATED AUTHOR 11/29/2021 [facility] DATE CREATED AUTHOR AUTHOR'S ORGANIZ ATION 01/16/2025 [facility] EPIC REASON FOR VISIT (unrecogniz ed section and content) ReasonCommentsMedicare Annual Wellness Visit SubsequentwellnessReasonComments Skin CheckSuspicious Skin LesionReasonCommentsFollow-upgoutReasonCommentsSkin Check Care Teams (unrecognized sec tion and content) Team MemberRelationshipSpecialtyStart DateEnd Date Vimal Danielson MD [address] [address] [facility] - [facility] Wbfjzuma06/18/24Team MemberRelationshipSpecialtyStart Date End Date Vimal Danielson MD [address] [place] [address] PCP - Generalmi Sihsmppn27/18/24Team MemberRelationshipSpecialtyStart Date End Date Vimal Danielson MD PCP - Generalmily Cjtobreh25/1/23Team MemberRelationshipSpecialtyStart DateEnd Date Vimal Danielson MD PCP - Generalmi Nsirsgnx38/1/23Team MemberRelationshipSpecialtyStart DateEnd Date Vimal Danielson MD [address] [place] [phone] [facility]03/18/24 Vimal Danielson MD [address] [place] [address] [facility]05/08/24Team MemberRelationshipSpecialtyStart DateEnd Date Vimal Danielson MD [address] [place] [address] [facility]03/18/24 Vimal Danielson MD [address] [place] [address] [facility]05/08/24Team MemberRelationshipSpecialtyStart DateEnd Date Vimal Danielson MD [facility]03/18/24 Vimal Danielson MD [address] [place] [address] [facility]05/08/24Team MemberRelationshipSpecialtyStart DateEnd Date Vimal Danielson MD [facility]03/18/24 Vimal Danielson MD [address] [place] [phone] [facility]05/08/24 FOR RECORDS PERTAINING TO PATIENTS WHO ARE OR HAVE BEEN ENROLLED IN A CHEMICAL DEPENDENCY/SUBSTANCEABUSE PROGRAM, SOME INFORMATION MAY BE OMITTED. This clinical summary was aggregated from multiple sources. Caution should be exercised in using it in the provision of clinical care. This summary normalizes information from multiple sources, and as a consequence, information in this document may materially change the coding, format and clinical context of patient data. In addition, data may be omitted in some cases. CLINICAL DECISIONS SHOULD BE BASED ON THE PRIMARY CLINICAL RECORDS. [facility]. provides no warranty or guarantee of the accuracy or completeness of information in this document.
[2025-03-29 12:51] LABS: Hematocrit 43.4 % (42.0-54.0); Hemoglobin 14.2 g/dL (14.0-18.0); Immature Granulocytes Abs Auto 0.01 10^3/uL (0.00-0.03); Immature Granulocytes Pct Auto 0.2 % (0.0-0.5); Lymphocytes Absolute Auto 1.3 10^3/uL (1.2-3.8); Mean Corpuscular HGB Conc 32.7 g/dL (29.9-35.2); Mean Corpuscular Hemoglobin 30.4 pg (25.9-34.0); Mean Corpuscular Volume 92.9 fL (80.0-94.0); Platelet Count 170 10^3/uL (150-450); Red Blood Count 4.67 10^6/uL (4.70-6.10); White Blood Count 5.2 10^3/uL (4.0-11.0)
[2025-03-29 13:28] LABS: Alanine Aminotransferase 44 U/L (16-63); Albumin Globulin Ratio 1.0; Albumin Level 3.8 g/dL (3.4-5.0); Alkaline Phosphatase 82 U/L (46-116); Anion Gap 8.3; Aspartate Amino Transferase 31 U/L (15-37); Blood Urea Nitrogen 23.0 mg/dL (7.0-18.0); Calcium 9.7 mg/dL (8.5-10.1); Carbon Dioxide 33.4 mmol/L (21.0-32.0); Chloride 105 mmol/L (98-107); Cholesterol 195 mg/dL (<=200); Estimated GFR (African America >60 (>=60 mL/min/1.73m^2); Estimated GFR (Non-African Ame >60 (>=60 mL/min/1.73m^2); Globulin 3.7 g/dL; Glucose 107 mg/dL (74-106); HDL Cholesterol 56 mg/dL (40-60); Potassium 3.7 mmol/L (3.5-5.1); Sodium 143 mmol/L (136-145); Thyroid Stimulating Hormone 3.791 uIU/mL (0.358-3.740); Total Protein 7.5 g/dL (6.4-8.2); Triglycerides 278 mg/dL (<=150); VLDL CHOLESTEROL 55.6 mg/dL
== END 2025-03-29 12:10 | disposition home or self-care (01) ==
LOC: LAB 12:12
PROVIDERS: PCP Family Medicine; Visit Provider Family Medicine
DX: Z79.899 Other long term (current) drug therapy (principal); R73.03 Prediabetes; E78.5 Hyperlipidemia, unspecified; R53.83 Other fatigue; Z12.5 Encounter for screening for malignant neoplasm of prostate
CPT/HCPCS: 36415; 80053; 80061; 83036; 84443; 85025; G0103